=== PATIENT | male | born 1945 | race Native Hawaiian/Other Pacific Islander ===

== ENCOUNTER 2017-10-24 10:01 | Outpatient (CLI) | payer OTHER ==
[2017-10-24 11:35] LABS: PLATELET COUNT 233 K/uL (142-355)
[2017-10-24 13:09] LABS: POTASSIUM 4.8 mmol/L (3.6-5.2); SODIUM 140 mmol/L (136-145)
== END 2017-10-24 20:20 | disposition home or self-care (01) ==
LOC: LABW 10:01
PROVIDERS: Plastic Surgery Plastic Surgery Within the Head and Neck
DX: Z01.812 Encounter for preprocedural laboratory examination (principal); Z01.818 Encounter for other preprocedural examination; Z01.810 Encounter for preprocedural cardiovascular examination; Z01.811 Encounter for preprocedural respiratory examination
CPT/HCPCS: 36415; 80048; 85027; 93005

== ENCOUNTER 2018-05-04 18:20 | Emergency (ER) | payer OTHER ==
[~2018-05-04] VITALS: Ht 185.4 cm; Wt 81.6 kg
[2018-05-04 20:00] VITALS: BP 129/78; TEMP 98
== END 2018-05-04 20:01 | disposition home or self-care (01) ==
LOC: ED 18:20
DX: S63.592A Other specified sprain of left wrist, initial encounter (principal); W18.39XA Other fall on same level, initial encounter; Y92.89 Other specified places as the place of occurrence of the external cause
CPT/HCPCS: 99282

== ENCOUNTER 2021-01-04 16:02 | Emergency (ER) | payer OTHER ==
[~2021-01-04] VITALS: Ht 185.4 cm; Wt 81.6 kg
[2021-01-04 16:28] LABS: PLATELET COUNT 277 K/uL (142-355)
[2021-01-04 16:40] LABS: POTASSIUM 3.8 mmol/L (3.6-5.2)
[2021-01-04 19:55] VITALS: BP 118/70; TEMP 98.7
== END 2021-01-04 19:55 | disposition short-term general hospital (02) ==
LOC: ED 16:02
PROVIDERS: Hospitalist
DX: K85.10 Biliary acute pancreatitis without necrosis or infection (principal); K81.9 Cholecystitis, unspecified; Z03.818 Encounter for observation for suspected exposure to other biological agents ruled out
CPT/HCPCS: 80053; 80320; 82150; 83605; 83690; 85027; 87040; 87635; 93005; 96360; 96361; 96365; 96366; 96375; 96376; 99285; J1170; J1885; J1956; J2405; J3490; Q9963; U0003